=== PATIENT | female | born 1955 | race Caucasian/White ===

== ENCOUNTER 2023-02-14 18:17 | Emergency (ER) | payer OTHER, MEDICAID ==
[~2023-02-14] VITALS: Ht 154.9 cm; Wt 62.0 kg
[2023-02-14 19:30] VITALS: PULSE 59; RESP 16; TEMP 98.5; O2SAT 100
[2023-02-14 22:16] LABS: Basophils # (auto) 0.1 10 ^3/uL (0-0.2); Basophils % (auto) 1.3 % (0.0-2.0); Eosinophils # (auto) 0.3 10 ^3/uL (0-0.8); Eosinophils % (auto) 3.5 % (0.0-7.0); Hematocrit 32.8 % (36.0-46.0); Lymphocytes # (auto) 1.5 10 ^3/uL (0.4-5.4); Lymphocytes % (auto) 20.5 % (10.0-50.0); Mean Corpuscular Hemoglobin 30.6 pg (28.0-32.0); Mean Corpuscular Hgb Conc. 33.7 g/dL (32.0-36.0); Mean Corpuscular Volume 90.9 fL (80.0-100.0); Monocytes # (auto) 1.1 10 ^3/uL (0-1.3); Monocytes % (auto) 14.8 % (0.0-12.0); Neutrophils # (auto) 4.3 10 ^3/uL (1.6-8.6); Neutrophils % (auto) 59.9 % (37.0-80.0); Nucleated Red Blood Cells % 0.1 %; Red Blood Cells 3.61 10^6/uL (4.0-5.20); Red Cell Distribution Width 16.4 % (11.8-14.3); White Blood Cell 7.1 10^3/uL (4.4-10.8)
[2023-02-14 22:19] LABS: Alanine Aminotransferase 16 U/L (7-40); Albumin 3.3 g/dL (3.2-4.8); Alkaline Phosphatase 70 U/L (46-116); Anion Gap 7.6 (5-15); Aspartate Aminotransferase 21 U/L (13-40); Bilirubin, Total 0.2 mg/dL (0.2-1.0); Calcium 8.6 mg/dL (8.5-10.1); Carbon Dioxide 25.4 mmol/L (20-30); Chloride 111 mmol/L (98-107); Glucose 110 mg/dL (74-106); Magnesium 1.7 mg/dL (1.6-2.6); Potassium 3.7 mmol/L (3.5-5.1); Sodium 144 mmol/L (136-145); Total Protein 5.4 g/dL (5.7-8.2)
[2023-02-14 22:22] LABS: Prothrombin Time 10.5 sec (9.3-11.8)
[2023-02-14 22:47] LABS: BUN/Creatinine Ratio 18.3 (10.0-20.0); Blood Urea Nitrogen 13 mg/dL (9-23)
[2023-02-15 08:06] VITALS: BP 129/59; PULSE 71; RESP 20; O2SAT 95
== END 2023-02-15 03:56 | disposition home or self-care (01) ==
LOC: EDBD 18:17 → ER 18:17
DX: T59.811A Toxic effect of smoke, accidental (unintentional), initial encounter (principal); D64.9 Anemia, unspecified; R73.9 Hyperglycemia, unspecified; Z90.49 Acquired absence of other specified parts of digestive tract; Z79.899 Other long term (current) drug therapy; Y92.89 Other specified places as the place of occurrence of the external cause
CPT/HCPCS: 36415; 71045; 80053; 83735; 84484; 85025; 85610; 85730